=== PATIENT | female | born 1970 | race Hispanic/Latino ===

== ENCOUNTER → 2018-01-30 | Day surgery (SDC) | payer OTHER ==
[~2018-01-30] VITALS: Ht 149.9 cm; Wt 58.1 kg
[~2018-01-30] MED LIST: BIOTIN2500 MCG PO; CITALOPRAM HBR20 MG PO; ESTROVEN MAX400 MCG PO; IBUPROFEN600 M1 PO; METFORMIN HCL500 M3 PO; PRAVACHOL20 M2 PO; SYNTHROID25 MCG PO; VITAMIN C500 M6 PO
--- NOTE | 2018-01-30 13:40 | Operative Report ---
Operative/Inv Procedure Report Surgery Date: 01/30/18 Name of Procedure: Bilateral reduction mammoplasty Pre-Operative Diagnosis: Symptomatic macromastia Post-Operative Diagnosis: same Estimated Blood Loss: scant (150) Surgeon/Human Anatomy Teacher: Luis Daniel Watson MD Anesthesia: general endotracheal tube Operative/Procedure Note Note: Patient was counseled in regards to the procedure the alternatives the risks and the expected outcomes as relates to her request for surgical intervention to treat symptomatic macromastia. She was given in a [facility]PS informed consent we have discussed and she has no questions regarding it. No guarantees were given in regards to cup size. She was marked in the standing position for inferior pedicle tovar pattern technique. She signed an informed consent today. She was brought to the operating room placed supine on the table. Venodyne boots were placed general anesthesia was given as well as intravenous antibiotics. The chest was prepped and draped in usual sterile fashion. The epithelialization of a 9 cm inferior pedicle was carried out. Segments were removed superiorly medially and laterally after developing a skin flap. She was put in the sitting position to assess symmetry with a temporary closure. Nipple areolar complexes were located in this position and measured. 3 layer closure was carried out of the wounds. End dictation
== END ==
LOC: STS 01-09 07:00
DX: N62 Hypertrophy of breast (principal); E03.9 Hypothyroidism, unspecified; R73.01 Impaired fasting glucose; K21.9 Gastro-esophageal reflux disease without esophagitis; A60.00 Herpesviral infection of urogenital system, unspecified
CPT/HCPCS: 88305; J0690; J1630; J2250; J2765; J3490; Q9968